=== PATIENT | female | born 1950 | race Hispanic/Latino ===

== ENCOUNTER 2018-01-08 10:47 | Outpatient (CLI) | payer MEDICARE ==
--- NOTE | 2018-01-08 11:43 | RAD ---
PA AND LATERAL CHEST: History: Cough. FINDINGS: The heart size is enlarged. The lungs are expanded with mild prominence of the left lung. No consolid ation, pneumothoraces, or pleural effusions are seen. There are degenerative changes of the spine. IMPRESSION: No evidence of pneumonia. POS: [facility]
== END 2018-01-08 10:48 | disposition home or self-care (01) ==
LOC: MADRAD 10:47
PROVIDERS: ATTEND Family Medicine
DX: R05 Cough (principal)
CPT/HCPCS: 71046

== ENCOUNTER 2018-12-04 14:26 | Emergency (ER) | payer MEDICARE ==
[~2018-12-04 14:26] MED LIST: Iopamidol 370 76% 125 ML VIAL FS ONE
[2018-12-04] MEDS ORDERED: Sodium Chloride 0.9% 500 ML ONE ×2 (15:13→17:01)
[2018-12-04 15:30] LABS: Band 1 % (5-11); Eosinophils 2 % (0-10); Hemoglobin 15.2 g/dL (12.0-16.0); Lymphocytes 20 % (21-51); MDiff Complete? YES; Mean Corpuscular HGB CONC 31.7 g/dL (32.0-36.0); Mean Corpuscular Hemoglobin 28.6 pg (27.0-31.0); Mean Corpuscular Volume 90.3 fL (78.0-98.0); Mean Platelet Volume 6.9 fL (7.4-10.4); Monocytes 10 % (0-10); Myelocyte 1 % (0-0); Neutrophil 48 % (42-75); Platelet Count 274 thou/uL (130-400); Platelet Morphology Comment Appears Adequate; RBC Distribution Width 12.7 % (11.5-14.5); RBC Morphology Normal; Reactive Lymphocytes 18 % (0-10); White Blood Cell (WBC) Count 6.6 thou/uL (4.8-10.8)
[2018-12-04 15:32] LABS: ALT (SGPT) 21 U/L (8-55); AST (SGOT) 27 U/L (5-34); Albumin 3.9 g/dL (3.4-4.8); Alkaline Phosphatase 82 U/L (40-150); Anion Gap 18 mmol/L (10-20); BUN (Urea Nitrogen) 12 mg/dL (9.8-20.1); Bilirubin, Total 0.4 mg/dL (0.2-1.2); Calc. Creatinine Clearance 0 mL/min (70-130); Calcium 9.2 mg/dL (7.8-10.44); Carbon Dioxide 26 mmol/L (23-31); Chloride 100 mmol/L (98-107); Estimated GFR-MDRD 71; Globulin 3.8 g/dL (2.4-3.5); Glucose 175 mg/dL (80-115); Potassium 4.4 mmol/L (3.5-5.1); Protein, Total 7.7 g/dL (6.0-8.3); Sodium 140 mmol/L (136-145)
--- NOTE | 2018-12-04 15:53 | RAD ---
CHEST ONE VIEW: 12/04/17 HISTORY: Dyspnea. COMPARISON: 01/08/18. FINDINGS: Portable upright chest demonstrates an enlarged cardiac silhouette. Pulmonary vessels are prominent. There are increased interstitial and alveolar opacities. Lungs are hyperinflated. No pneumothorax. IMPRESSION: Congestive heart failure. Superimposed infiltrate in the right upper lobe cannot be excluded. Continu ed surveillance to ensure resolution is recommended. POS: [facility]
[2018-12-04] MEDS ORDERED: Sodium Chloride 0.9% 100 ML ONE (17:01)
[2018-12-04] MEDS ORDERED: Piperacillin/Tazobactam 4.5 GM VIAL ONE (17:01)
--- NOTE | 2018-12-04 17:20 | CT ---
CT ANGIOGRAM OF CHEST: Date: 12/04/18 HISTORY: Elevated D-Dimer. Atrial fibrillation. Cardiac arrhythmia. Dyspnea. COMPARISON: None. FINDINGS: Trachea and central bronchi are patent. There are ground-glass and alveolar opacities involving the r ight upper lobe. Correlate for aspiration/pneumonia. Adequate aeration of the remainder of the right and left lung. Consolidation with air bronchograms in the right lower lobe likely represents a compon ent of subsegmental atelectasis/scar vs pneumonia. There is fat attenuation along the posterolateral right pleural margin, nonspecific. There are mildly enlarged mediastinal lymph nodes. Program/Music Director enlarged mediastinal lymph node is precarinal in location and measures 1.4 x 1.4 cm. Heart size is normal. No significant pericardial fl uid. The thoracic aorta and abdominal aorta have a normal caliber. No periaortic fat stranding. Visualized upper solid abdominal viscera is unremarkable. Adequate contrast opacification of the pulmonary arterial system to the level of the segmental arteri es. No filling defect to suggest thromboembolism. No lytic or blastic lesions of the osseous structures. IMPRESSION: 1. No evidence of pulmonary artery embolism to the level of the segmental arteries. 2. Ground-glass and alveolar opacities in the right upper lobe, worrisome for aspiration or pneumoni a. 3. Probable scar or atelectasis in the right lower lobe with associated air bronchogram. The possibi lity of pneumonia cannot be excluded, but is less favored. Continued surveillance is recommended. POS: [facility] [place]
[2018-12-04] MEDS ORDERED: Sodium Chloride 0.9% 1,000 ML ONE (19:12)
== END 2018-12-04 19:58 | disposition short-term general hospital (02) ==
LOC: MADERS 14:26
DX: J18.9 Pneumonia, unspecified organism (principal); I48.91 Unspecified atrial fibrillation; E11.9 Type 2 diabetes mellitus without complications; Z79.899 Other long term (current) drug therapy; Z79.01 Long term (current) use of anticoagulants
CPT/HCPCS: 36415; 71045; 71275; 80053; 83605; 83880; 84484; 85025; 87040; 87804; 93005; 96361; 96365; 96375; J2543; J7050; Q9967

== ENCOUNTER 2018-12-14 11:14 | Outpatient (CLI) | payer MEDICAID, MEDICARE ==
--- NOTE | 2018-12-14 12:16 | RAD ---
PA AND LATERAL CHEST: Date: 12/14/18 COMPARISON: 01/08/18 and 12/04/18 chest x-rays and a 12/04/18 CT chest. HISTORY: Pneumonia. FINDINGS: The heart size is enlarged. There are some persistent right upper lobe parenchymal changes that do ap pear slightly improved as compared to the prior examination. The blunting to the costophrenic angle r egion is a stable finding. IMPRESSION: 1. Cardiomegaly. 2. Improving right upper lobe infiltrate. POS: [facility]
== END 2018-12-14 11:15 | disposition home or self-care (01) ==
LOC: MADRAD 11:14
PROVIDERS: ATTEND Family Medicine
DX: J18.9 Pneumonia, unspecified organism (principal); I51.7 Cardiomegaly; J98.4 Other disorders of lung
CPT/HCPCS: 71046

== ENCOUNTER 2019-01-16 09:46 | Outpatient (CLI) | payer MEDICARE ==
--- NOTE | 2019-01-16 10:23 | RAD ---
CHEST 2 VIEWS: Date: 01/16/19 HISTORY: Pneumonia. Follow-up. COMPARISON: 12/14/18. FINDINGS: Cardiac silhouette unremarkable. Pulmonary vasculature upper limits of normal. Mediastinum midline wi th electronic monitoring device over the anterior chest. No confluent air space consolidation. Mild a telectasis at the right posterior lung base on the lateral view is stable. Right upper lobe infiltrat e has resolved. IMPRESSION: Resolution of right upper lobe infiltrate. POS: [facility]
== END 2019-01-16 09:47 | disposition home or self-care (01) ==
LOC: MADRAD 09:46
PROVIDERS: ATTEND Family Medicine
DX: J18.9 Pneumonia, unspecified organism (principal)
CPT/HCPCS: 71046